=== PATIENT | male | born 1995 | race Caucasian/White ===

== ENCOUNTER 2017-03-27 01:21 | Emergency (ER) | payer SELFPAY ==
[~2017-03-27] VITALS: Ht 165.1 cm; Wt 72.6 kg
--- NOTE | 2017-03-27 01:30 | NUR ---
PT BIBSELF C/O "HAVEN'T SLEPT IN A FEW DAYS." PT ADMITS TO LAST USED [facility] EARLIER TODAY. PT AOX3 RR EVEN AND UNLABORED. NO SOB NOTED. NAD NOTED. NO NVD AT THIS TIME. PT GOWNED. DR LAMB AT BEDSIDE FOR EVAL.
--- NOTE | 2017-03-27 02:28 | NUR ---
Patient is resting comfortably in bed with eyes closed. Easily aroused. VSS
--- NOTE | 2017-03-27 03:07 | NUR ---
PT SLEEPING, AWAKENS TO VOICE, STATES "ALL I WANT TO DO IS SLEEP". VSS
--- NOTE | 2017-03-27 05:10 | NUR ---
PT ASLEEP, AAKENS TO VERBAL COMMANDS. VSS
--- NOTE | 2017-03-27 05:37 | NUR ---
Note undone in EDM - 03/27/17 at 0540 by ELVIRA IV removed. Catheter intact and site benign. Pressure and 4x4 applied to site. No bleeding noted. Patient discharged to home in stable condition. Written and verbal after care instructions given. Patient verbalizes understanding of instruction. ambulatory with a steady gait. instructed not to drive. pt verbalize understanding.
[2017-03-27 05:39] VITALS: BP 122/78
== END 2017-03-27 05:40 | disposition home or self-care (01) ==
LOC: ER 01:26
DX: F15.10 Other stimulant abuse, uncomplicated (principal); F10.10 Alcohol abuse, uncomplicated; F17.200 Nicotine dependence, unspecified, uncomplicated
CPT/HCPCS: A4606; Z7610